=== PATIENT | male | born 1965 | race Caucasian/White ===

== ENCOUNTER 2022-08-12 07:04 | Outpatient (CLI) | payer BC, SELFPAY ==
--- NOTE | 2022-08-12 | ECG_ITS ---
Measurements Intervals [place] Rate: 88 P: [place]: 0 QRS: 56 QRSD: 107 T: 37 QT: 374 QTc: 454 Interpretive Statements ATRIAL FIBRILLATION ABNORMAL RHYTHM ECG NO PREVIOUS ECG AVAILABLE FOR COMPARISON Electronically Signed On 08-12-2022 15:24:47 [employer] MANAGER by Carl Pendleton M.D.
== END 2022-08-12 07:05 | disposition home or self-care (01) ==
LOC: ANHLAB 07:14
PROVIDERS: Visit Provider Internal Medicine Cardiovascular Disease
DX: I48.91 Unspecified atrial fibrillation (principal)
CPT/HCPCS: 93005